=== PATIENT | female | born 2000 | race Caucasian/White ===

== ENCOUNTER 2019-08-31 10:59 | Emergency (ER) | payer SELFPAY ==
[2019-08-31 12:22] LABS: Pregnancy Test - Urine (BHCG) Negative (Negative)
[2019-08-31 12:23] LABS: Bilirubin Small (Negative); Blood, Urine Negative (Negative); Glucose, Urine (Dipstick) Negative (Negative); Leukocyte Negative (Negative); Nitrite Negative (Negative); Pregu Control Background? CLEAR/WHITE (CLR/WHITE); Pregu Control Bar Appear? YES (CONTROL BAR); Protein, Urine (Dipstick) Negative (Neg-Trace); Specific Gravity 1.025 (1.002-1.036); Urobilinogen 0.2 mg/dL (Less than 2)
[2019-08-31] MEDS ORDERED: Ketorolac Tromethamine 30 MG/ML VIAL ONE (12:26)
[2019-08-31 12:44] LABS: Clarity Clear (Clear)
[2019-08-31 12:49] LABS: Bacteria/HPF Rare-Few HPF (None Seen); RBC/HPF None Seen HPF (0-3); Squamous Epithelial 0-3 HPF (0-3); WBC/HPF 0-3 HPF (0-3)
[2019-08-31] MEDS ORDERED: Fluconazole 100 MG TAB PO SCH (14:15)
== END 2019-08-31 14:32 | disposition home or self-care (01) ==
LOC: ERS 10:59
DX: B37.3 Candidiasis of vulva and vagina (principal)
CPT/HCPCS: 81003; 81025; 87480; 87491; 87510; 87591; 87660; 96372; 99283; J1885